=== PATIENT | male | born 1955 | race Caucasian/White ===

== ENCOUNTER 2018-06-28 17:20 | Inpatient (IN) | payer MEDICARE, OTHER ==
[2018-06-28 17:53] VITALS: BP 145/80
[2018-06-28] MEDS ORDERED: Maalox 30 mL Cup PO PRN (18:02)
[2018-06-28] MEDS ORDERED: Magnesium Hydroxide (MOM) 30 mL UDC PO PRN (18:02)
[2018-06-28 21:08] LABS: URINE SOURCE RANDOM
[2018-06-28 21:11] LABS: URINE BILIRUBIN NEGATIVE (NEGATIVE); URINE BLOOD NEGATIVE (NEGATIVE); URINE GLUCOSE (UA) NEGATIVE (NEGATIVE); URINE KETONE NEGATIVE (NEGATIVE); URINE LEUKOCYTE ESTERASE TRACE (NEGATIVE); URINE MICROSCOPIC INDICATED? YES; URINE NITRATE NEGATIVE (NEGATIVE); URINE PROTEIN NEGATIVE (NEGATIVE); URINE UROBILINOGEN 0.2 E.U./dL (0.2 - 1.0)
[2018-06-28 21:13] LABS: URINE CLARITY CLEAR (CLEAR); URINE COLOR YELLOW
[2018-06-28 21:16] LABS: URINE RBC 0-2 /hpf (0-5)
[2018-06-28 21:17] LABS: URINE BACTERIA OCCASIONAL /hpf (NONE SEEN); URINE EPITHELIAL CELLS OCCASIONAL /lpf (FEW)
[2018-06-29 06:45] LABS: % BASOPHILS 0.2 % (0.0-2.0); % EOSINOPHILS 1.8 % (0.0-5.0); % LYMPHOCYTES 18.2 % (20.0-50.0); % MONOCYTES 9.5 % (2.0-10.0); % NEUTROPHILS 70.3 % (40.0-80.0); EOSINOPHILE ABSOLUTE 0.2 Th/cmm (0.1-0.4); HEMATOCRIT 44.9 % (41.0-60); HEMOGLOBIN 15.1 gm/dL (12-16); LYMPHOCYTE ABSOLUTE 2.5 Th/cmm (1.5-3.0); MEAN CELL VOLUME 88.7 fl (80-99); MEAN CORPUSCULAR HEMOGLOBIN 29.7 pg (26.0-30.0); MEAN CORPUSCULAR HGB CONC 33.5 pg (28.0-36.0); MEAN PLATELET VOLUME 7.5 fl; MONOCYTE ABSOLUTE 1.3 Th/cmm (0.3-1.0); NEUTROPHILE ABSOLUTE 9.5 Th/cmm (1.8-8.0); PLATELET COUNT 321 Th/cmm (150-400); RED BLOOD COUNT 5.07 Mil/cmm (4.30-5.70); RED CELL DISTRIBUTION WIDTH 14.2 % (11.5-20.0); WHITE BLOOD COUNT 13.5 Th/cmm (4.8-10.8)
[2018-06-29 07:10] LABS: ALB/GLOB RATIO 1.6 (1.0-1.8); ALBUMIN 4.1 gm/dL (4.2-5.5); ALKALINE PHOSPHATASE 68 U/L (34-104); ANION GAP 12.5 (7.0-16.0); BILIRUBIN,TOTAL 1.3 mg/dL (0.3-1.0); BUN - UREA NITROGEN 6 mg/dL (7-25); CALCIUM SERUM 9.3 mg/dL (8.6-10.3); CARBON DIOXIDE 24.7 mEq/L (21.0-31.0); CHLORIDE 105 mEq/L (98-107); CREATININE - SERUM 0.7 mg/dL (0.7-1.3); GFR AFRICAN-AMERICAN > 60.0 ml/min (>90); GFR NON AFRICAN-AMERICAN > 60.0 ml/min; GLUCOSE 136 mg/dL (70-105); POTASSIUM SERUM 4.2 mEq/L (3.5-5.1); SGOT 13 U/L (13-39); SGPT/ALT 10 U/L (7-52); SODIUM SERUM 138 mEq/L (136-145); TOTAL PROTEIN,SERUM 6.6 gm/dL (6.0-8.3)
[2018-06-29 07:11] LABS: CHOLESTEROL 160 mg/dL (<200); HDL -HIGH DENSITY LIPOPROTEIN 45 mg/dL (23-92); TRIGLYCERIDES 117 mg/dL (<150)
--- NOTE | 2018-06-29 09:09 | Diagnostic Imaging Report ---
Portable chest x-ray History: Shortness of breath Allowing for portable technique the heart size is normal. No focal pulmonary parenchymal processes. No hilar or mediastinal abnormalities. Impression: No acute abnormalities.
[2018-06-29] MEDS: Multivitamin Tab PO SCH (09:17)
--- NOTE | 2018-06-29 20:59 | Psychiatric Evaluation ---
DATE OF SERVICE: 06/28/2018 IDENTIFYING DATA: The patient is a 62-year-old male admitted on 5150 from [facility] in [place] because of the grave disability. CHIEF COMPLAINT: "I don't know, I need to be in here." HISTORY OF PRESENT ILLNESS: This is the first psychiatric hospitalization to [facility] for this patient who is reported to have been not making any sense and is extremely paranoid and has been going on a tangent. The patient during the interview has been noted to be very disabled and has been also reported to have been acting very bizarre. The patient is reported to have mentioned to the bond underwriter at the [facility] that someone took his brain. The patient has started to shout at the bond underwriter for every question unable to focus and give simple answers. When I am asking him, he says that he does not have anyone and he needs to be in here and does okay with him. The patient at this time is not making much sense. Continues to be paranoid. The patient also reported to have tried to take his life. PAST PSYCHIATRIC HISTORY: Details are not known. MEDICAL HISTORY AND PHYSICAL EXAMINATION: Requested by Dr. Jay. SUBSTANCE ABUSE HISTORY: None. PHYSICAL OR SEXUAL ABUSE HISTORY: None. LEGAL PROBLEMS: None at this time. STRENGTH AND ASSETS: The patient is motivated. MENTAL STATUS EXAMINATION: The patient is a 62-year-old, looking his stated age, superficially cooperative. Eye contact is poor. Mood is noted to be irritable. Affect is constricted. The patient is getting easily irritable. The patient is alert and aware that he is in the hospital. Insight and judgment overall noted to be very poor. DIAGNOSTIC IMPRESSION: AXIS I: Schizophrenia, chronic paranoid type. B: Rule out schizoaffective disorder. AXIS II: None. AXIS III: As per Dr. Jay. IMMEDIATE TREATMENT PLAN: The patient is going to be observed on inpatient unit, provided with supportive psychotherapy. The patient is going to be closely monitored and encouraged to participate in the groups and verbalize the concerns rather than to act out. Once stabilized, the patient is going to be discharged to [facility] to be followed up on an outpatient basis. ESTIMATED LENGTH OF STAY: 5-7 days. DISCHARGE CRITERIA: When he no longer is a threat to self or others and be able to cope up with the stress. [facility]# [id number]
[2018-06-30] MEDS: Escitalopram Oxalate 5 mg Tab PO SCH (08:58)
[2018-06-30] MEDS: Multivitamin Tab PO SCH (08:58)
--- NOTE | 2018-06-30 09:12 | History & Physical ---
ADMIT DATE: 06/28/2018 REASON FOR ADMISSION: Psychiatric disorder. HISTORY OF PRESENT ILLNESS: This is a 62-year-old male with underlying history of mental health disorder who was admitted to [facility] for underlying psychiatric illness by Dr. Amin. Dr. Amin requested medical H and P on this patient. During my evaluation, the patient states he is doing fine, has a right lower leg area open wound for which he has been treated for with antibiotics. Denies any fever, chills, nausea, vomiting. No chest pain, trouble breathing. No headache or other complaints. PAST MEDICAL HISTORY: Denies. PAST SURGICAL HISTORY: Denies. FAMILY HISTORY: Denies. SOCIAL HISTORY: Chronic smoker. Denies any alcohol or street drug use. CURRENT MEDICATIONS: Per medication reconciliation. ALLERGIES: No drug allergies. REVIEW OF SYSTEMS: As per HPI, 12-point system reviewed, appears negative. PHYSICAL EXAMINATION: VITAL SIGNS: Temperature 98.8, pulse 79, respirations 18-20, blood pressure ____ 98% on room air. Pain 0/10. GENERAL APPEARANCE: This patient does not seem in acute distress. HEART: S1, S2 normal ____ NEUROLOGIC: The patient awake, somewhat confused. Moves all extremities. Grossly nonfocal exam. SKIN: The right lower extremity open wound noted. Also, some scattered ____. ASSESSMENT AND PLAN: 1. Right lower leg infected wound, improving. 2. Nicotine dependence. 3. ____. Continue Keflex. Daily wound care will be given. Smoking cessation advised. Psych management per psychiatrist. ____. JOB# [id number]
--- NOTE | 2018-06-30 11:01 | Progress Notes ---
DATE: 06/30/2018 SUBJECTIVE: Staff was spoken to. The patient's mood is noted to be irritable. Affect is constricted. Insight and judgment at this time are noted to be still impaired. Impulse control is noted to be limited. The patient has been placed on 5 mg of the citalopram and 12.5 mg of the Seroquel and has been able to tolerate. No side effects to the medications are noted. The patient is getting easily irritable and angry at this time and has been very paranoid. ASSESSMENT: The patient is still impulsive. PLAN: To continue the patient with the supportive therapy. I encouraged the patient to verbalize the concerns. The patient is still insisting on ending his life and the patient is not able to contract for safety. Plan to closely monitor the patient with the above medications and follow. JOB# [id number]
[2018-07-01] MEDS: Multivitamin Tab PO SCH (08:16)
[2018-07-01] MEDS: Escitalopram Oxalate 5 mg Tab PO SCH (08:17)
--- NOTE | 2018-07-01 21:51 | Progress Notes ---
DATE: 07/01/2018 SUBJECTIVE: Staff was spoken to. The patient is interviewed. Mood is noted to be depressed. Affect is constricted. Coping skills are noted to be still poor. The patient has been having difficult time to cope with the stress. The patient is still depressed and is insisting on ____ his leg. The patient is stating that he is sick and tired and does not want to be living anymore. ASSESSMENT: The patient is still depressed and suicidal. PLAN: To continue the patient with the supportive therapy, encouraged the patient to verbalize the concerns. Lexapro is going to be changed to 10 mg and the patient is going to be followed up with supportive therapy. JOB# [id number]
[2018-07-02] MEDS: Multivitamin Tab PO SCH (08:06)
--- NOTE | 2018-07-02 10:01 | Consultation ---
DATE OF CONSULTATION: 07/01/2018 REFERRING PHYSICIAN: Jani Amin M.D. TYPE OF CONSULTATION: Psychology. HISTORY OF PRESENT ILLNESS: The patient is a 62-year-old male. The patient is being admitted on a 5150 from [facility] due to grave disability. The following is by record review as well as by the patient's self report. According to record review, the patient was reported to have verbalized to the staff at [facility] that someone took his brain. It is reported that the patient had become extremely paranoid and was not making much sense as well as the patient was exhibiting bizarre behavior. The patient was then transferred here for evaluation and treatment for stabilization. Upon interview, the patient is loud and difficult to cognitively redirect. The patient is going off on a tangent and is not making much sense. The patient reports that he has had a previous suicide attempt. This requires further evaluation. The patient denied having suicidal ideation at the time of this clinical interview. PAST MEDICAL HISTORY: Please see history and physical by Dr. Jay. PAST PSYCHIATRIC HISTORY: Information is unavailable at the time of this clinical interview. Details are unknown. SUBSTANCE ABUSE HISTORY: The patient denied any history. PSYCHOSOCIAL HISTORY: The patient did not answer questions about occupational or educational history or holiness affiliation. The patient did not answer questions about history or physical or sexual abuse or current legal problems. The patient states that he does not have any family members or any friends or any support. MENTAL STATUS EXAMINATION: The patient appears to be his stated age. The patient's attitude is uncooperative. Speech is pressured and loud and rambling. Eye contact is poor. Mood is irritable. Affect is constricted. Thought process shows to be markedly tangential. The patient is answering clinical questions irrelevantly. The patient denied any auditory or visual hallucinations. The patient did admit that he had a previous suicide attempt. The patient denied current suicidal ideation, plan, or intention. The patient's behavior has been unpredictable and difficult to redirect on the unit. Impulse control is inadequate. Concentration is poor. The patient's sensorium is alert and oriented to self and place only. The patient did not participate in the memory assessment. Immediate memory appears to be impaired. Short-term and long-term memory need to be further evaluated. The patient did not participate in the interpretation of proverbs. Insight is impaired. Judgment is impaired. DIAGNOSTIC IMPRESSION: AXIS I: Schizophrenia, chronic paranoid type. AXIS II: Deferred. AXIS III: Per Dr. Jay. TREATMENT PLAN: The patient has been seen by Dr. Amin for psychiatric evaluation and for the management of the patient's psychotropic medications. We will provide supportive psychotherapy to include reality orientation, differentiation, and integration. We will provide daily opportunities for the patient to verbally contract for safety, specifically no self-harm. We will continue to evaluate for and monitor suicidal ideation, plan or intention since the patient has a self admitted history of at least 1 suicide attempt. We will provide limit setting and de-escalation and encourage the patient to verbalize his concerns versus acting out. We will provide coping strategies for chronic long-term severe mental illness. We will encourage the patient to demonstrate emotional and self-regulation prior to discharge. We will continue to provide supportive psychotherapy to include coping mechanisms and motivational enhancement for the patient to become compliant and stay compliant with all aspects of his care and treatment. Thank you, Dr. Amin, for this consult and the opportunity to participate in this patient's care. JOB# [id number] ANTONI
--- NOTE | 2018-07-02 12:22 | Progress Notes ---
DATE: 07/02/2018 SUBJECTIVE: Staff was spoken to. The patient is interviewed. Mood is noted to be irritable. Affect is constricted. Insight and judgment are very much impaired. Impulse control is noted to be poor. Coping skills are noted to very poor. The patient is not able to contract for safety. No side effects to the medications are noted at this time. ASSESSMENT: The patient is still impulsive and is threatening to take his life and is not able to contract for safety. PLAN: To continue the patient with the supportive therapy and followup. JOB# [id number]
[2018-07-03] MEDS: Multivitamin Tab PO SCH (08:23)
--- NOTE | 2018-07-03 12:08 | Progress Notes ---
DATE: 07/03/2018 SUBJECTIVE: Staff was spoken to. The patient is interviewed. Mood is noted to be irritable. Affect is constricted. Coping skills are noted to be poor at this time. The patient is still isolative and withdrawn and getting easily irritable and ____ frustrated. The patient, however, has been able to tolerate the medication. The patient is still suicidal. No homicidal ideation is noted. ASSESSMENT: The patient is still impulsive and depressed. PLAN: To continue the patient with the current medications and followup. JOB# [id number]
[2018-07-04] MEDS: Multivitamin Tab PO SCH (08:17)
--- NOTE | 2018-07-04 16:00 | Progress Notes ---
DATE: 07/04/2018 PSYCHIATRIC PROGRESS NOTE PROGRESS ON THE UNIT: Staff was spoken to. The patient is interviewed. Mood is noted to be irritable. Affect is constricted. Insight and judgment at this time are noted to be still impaired. The patient is very testy and tends to be very demanding. The patient has no coping skills. The patient is still insisting on hurting himself. The patient is not willing to participate in the groups and verbalize the concerns. ASSESSMENT: The patient is still impulsive. PLAN: To continue the patient with supportive therapy, increase the dose on Seroquel to 50 mg, and follow the patient with supportive therapy. JOB# [id number]
--- NOTE | 2018-07-04 21:48 | General Progress Note ---
Subjective - Review of Systems Service Date: 07/05/18 Subjective: Patient doing fine no new concern reported Objective - Results Result Diagrams: 06/29/18 06:05 06/29/18 06:05 Recent Labs: Laboratory Last Values WBC 13.5 Th/cmm (4.8-10.8) H 06/29/18 06:05 RBC 5.07 Mil/cmm (4.30-5.70) 06/29/18 06:05 Hgb 15.1 gm/dL (12-16) 06/29/18 06:05 Hct 44.9 % (41.0-60) 06/29/18 06:05 MCV 88.7 fl (80-99) 06/29/18 06:05 MCH 29.7 pg (26.0-30.0) 06/29/18 06:05 MCHC Differential 33.5 pg (28.0-36.0) 06/29/18 06:05 RDW 14.2 % (11.5-20.0) 06/29/18 06:05 Plt Count 321 Th/cmm (150-400) 06/29/18 06:05 MPV 7.5 fl 06/29/18 06:05 Neutrophils % 70.3 % (40.0-80.0) 06/29/18 06:05 Lymphocytes % 18.2 % (20.0-50.0) L 06/29/18 06:05 Monocytes % 9.5 % (2.0-10.0) 06/29/18 06:05 Eosinophils % 1.8 % (0.0-5.0) 06/29/18 06:05 Basophils % 0.2 % (0.0-2.0) 06/29/18 06:05 Sodium 138 mEq/L (136-145) 06/29/18 06:05 Potassium 4.2 mEq/L (3.5-5.1) 06/29/18 06:05 Chloride 105 mEq/L (98-107) 06/29/18 06:05 Carbon Dioxide 24.7 mEq/L (21.0-31.0) 06/29/18 06:05 Anion Gap 12.5 (7.0-16.0) 06/29/18 06:05 BUN 6 mg/dL (7-25) L 06/29/18 06:05 Creatinine 0.7 mg/dL (0.7-1.3) 06/29/18 06:05 Est GFR ( Amer) > 60.0 ml/min (>90) 06/29/18 06:05 Est GFR (Non-Af Amer) > 60.0 ml/min 06/29/18 06:05 BUN/Creatinine Ratio 8.6 06/29/18 06:05 Glucose 136 mg/dL (70-105) H 06/29/18 06:05 POC Glucose 206 MG/DL (70 - 105) H 06/28/18 20:02 Calcium 9.3 mg/dL (8.6-10.3) 06/29/18 06:05 Total Bilirubin 1.3 mg/dL (0.3-1.0) H 06/29/18 06:05 AST 13 U/L (13-39) 06/29/18 06:05 ALT 10 U/L (7-52) 06/29/18 06:05 Alkaline Phosphatase 68 U/L (34-104) 06/29/18 06:05 Total Protein 6.6 gm/dL (6.0-8.3) 06/29/18 06:05 Albumin 4.1 gm/dL (4.2-5.5) L 06/29/18 06:05 Globulin 2.5 gm/dL 06/29/18 06:05 Albumin/Globulin Ratio 1.6 (1.0-1.8) 06/29/18 06:05 Triglycerides 117 mg/dL (<150) 06/29/18 06:05 Cholesterol 160 mg/dL (<200) 06/29/18 06:05 LDL Cholesterol Direct 94 mg/dL (75-193) 06/29/18 06:05 HDL Cholesterol 45 mg/dL (23-92) 06/29/18 06:05 Urine Source RANDOM 06/28/18 20:00 Urine Color YELLOW 06/28/18 20:00 Urine Clarity CLEAR (CLEAR) 06/28/18 20:00 Urine pH 7.0 (4.6 - 8.0) 06/28/18 20:00 Ur Specific [place] 1.015 (1.005-1.030) 06/28/18 20:00 Urine Protein NEGATIVE mg/dL (NEGATIVE) 06/28/18 20:00 Urine Glucose (UA) NEGATIVE mg/dL (NEGATIVE) 06/28/18 20:00 Urine Ketones NEGATIVE mg/dL (NEGATIVE) 06/28/18 20:00 Urine Blood NEGATIVE (NEGATIVE) 06/28/18 20:00 Urine Nitrate NEGATIVE (NEGATIVE) 06/28/18 20:00 Urine Bilirubin NEGATIVE (NEGATIVE) 06/28/18 20:00 Urine Urobilinogen 0.2 E.U./dL (0.2 - 1.0) 06/28/18 20:00 Ur Leukocyte Esterase TRACE (NEGATIVE) H 06/28/18 20:00 Urine RBC 0-2 /hpf (0-5) H 06/28/18 20:00 Urine WBC 2-5 /hpf (0-5) 06/28/18 20:00 Ur Epithelial Cells OCCASIONAL /lpf (FEW) 06/28/18 20:00 Urine Bacteria OCCASIONAL /hpf (NONE SEEN) 06/28/18 20:00 - Physical Exam Vitals and I&O: Vital Signs Temp 97.4 F 07/04/18 14:00 Pulse 67 07/04/18 14:00 Resp 18 07/04/18 14:00 BP 108/60 07/04/18 14:00 Pulse Ox 97 07/04/18 14:00 Intake & Output 07/04/18 07/04/18 07/05/18 06:59 18:59 06:59 Intake Total 1350 Balance 1350 Intake: Oral 1350 Other: # Bowel Movements 1 Active Medications: Current Medications Acetaminophen (Tylenol) 650 mg PO Q4HR PRN PRN Reason: Mild Pain / Temp above 100 Stop: 08/27/18 18:01 Al Hydrox/Mg Hydrox/Simethicone (Maalox) 30 ml PO Q4HR PRN PRN Reason: GI DISTRESS Stop: 08/27/18 18:01 Escitalopram Oxalate (Lexapro) 10 mg PO DAILY ELIDA; Protocol Stop: 08/31/18 08:59 Last Admin: 07/04/18 08:17 Dose: 10 mg Lorazepam (Ativan) 0.5 mg PO Q4HR PRN; Protocol PRN Reason: Agitation Stop: 07/28/18 18:01 Last Admin: 07/04/18 08:17 Dose: 0.5 mg Magnesium Hydroxide (Milk Of Magnesia) 30 ml PO HS PRN PRN Reason: Constipation Multivitamins/Vitamin C (Theragran) 1 tab PO DAILY ELIDA Stop: 08/28/18 08:59 Last Admin: 07/04/18 08:17 Dose: 1 tab Quetiapine Fumarate (Seroquel) 50 mg PO HS ELIDA; Protocol Stop: 09/02/18 20:59 Last Admin: 07/04/18 21:15 Dose: 50 mg Zolpidem Tartrate (Ambien) 5 mg PO HS PRN PRN Reason: Insomnia Stop: 08/27/18 18:01 Last Admin: 07/04/18 21:15 Dose: 5 mg Cardiovascular: Regular rate Lungs: Clear to auscultation Extremities: Other (Right leg wound healing) Assessment/Plan - Assessment Assessment: Right leg wound healing Multiple superfical wound healing Nicotine dependancy - Plan Plan: Continue keflex Continue wound care Smoking cessation advised Psych management per psychiatrist Plan of care discussed with nursing staff Nutritional Asmnt/Malnutr-PDOC - Dietary Evaluation Malnutrition Findings (Please click <Entered> for more info): Nutritional Asmnt/Malnutrition Start: 06/29/18 12: 44 Text: Status: Complete Freq: Protocol: Document 06/29/18 12:50 KRYSTA (Rec: 06/29/18 13:00 [email or web address]) Nutritional Asmnt/Malnutrition Patient General Information Nutritional Screening High Risk Consult Diagnosis psychosis Pertinent Medical Hx/Surgical Hx no H&P as of this time. Per nurse note schizophrenia; attempted to strangle self with a cord Subjective Information Received nutrition consult d/t glucose 204 upon admit. Pt was seen eating in dining room . Food preferences provided. Pt stated he likes everything. Per EMR, PO intake 100% of snack last night. Glucose 136 today, pt on regular diet, no need for diabetic education at this time. Current Diet Order/ Nutrition Support regular Pertinent Medications theragran, seroquel Pertinent Labs 06/29 BUN 6, GLUC 136, Albumin 4.1 06/28 POC 206 Nutritional Hx/Data Height 1.83 m Height (Calculated Centimeters) 182.9 Current Weight (lbs) 92.986 kg Weight (Calculated Kilograms) 93.0 Weight (Calculated Grams) 56797.4 [place] Body Weight 178 Body Mass Index (BMI) 27.8 Weight Status Overweight GI Symptoms GI Symptoms None Last BM none noted Difficult in: None Food Allergies No Skin Integrity/Comment: laceration to left parietal, abrasions, lacerations to both arms and legs Current %PO Good (75-100%) Estimated Nutritional Goals BEE in Kcals: Using Current wt Calories/Kcals/Kg 23-27 Kcals Calculated 6699-7887 Protein: Using Current wt Protein g/k.8 Protein Calculated 75 Fluid: ml 9277-0717 (1ml/kcal) Nutritional Problem No current Nutrition Prob Problem N/A Malnutrition Alert Is there a minimum of two criteria No selected? Query Text:Check all the applicable criteria. A minimum of two criteria are recommended for diagnosis of either severe or non-severe malnutrition. Malnutrition Related to Morbid Obesity Malnutrition related to morbid obesity No Intervention/Recommendation Comments 1. Continue with regular diet as ordered. Consider CCHO diet if glucose continue high. 2. Monitor PO intake, wt, labs and skin integrity 3. F/U as moderate risk in 3-5 days, 07/02-07/04 Expected Outcomes/Goals Expected Outcomes/Goals 1. PO intake to meet at least 75% of nutritional needs. 2. Wt stability, skin to remain intact, labs to approach WNL. Reviewed by Sunita Conklin RD
[2018-07-05] MEDS: Multivitamin Tab PO SCH (08:52)
--- NOTE | 2018-07-05 20:31 | Progress Notes ---
DATE: 07/05/2018 PSYCHIATRIC PROGRESS NOTE SUBJECTIVE: Staff was spoken to. The patient is interviewed. Mood is noted to be irritable. Affect is constricted. The patient is pacing most of the time on the unit. Insight and judgment are noted to be still impaired. Impulse control is noted to be limited. The patient has been very disheveled. The patient is currently on 50 mg of the Seroquel at night time. Plan to gradually increase it to 100 mg and follow the patient with the supportive therapy. The patient is also on the Lexapro 10 mg in the morning. ASSESSMENT: The patient is still impulsive and paranoid. PLAN: To continue the patient with the current medications and follow the patient up. JOB# [id number]
[2018-07-06] MEDS: Multivitamin Tab PO SCH (09:40)
--- NOTE | 2018-07-07 02:12 | Progress Notes ---
DATE: 07/06/2018 PSYCHIATRIC PROGRESS NOTE SUBJECTIVE: Staff was spoken to. The patient is interviewed. Mood is noted to be less irritable. Today, the patient has paranoia, but denies any command hallucinations. Sleep and appetite are noted to be improving. Personal hygiene continues to be very poor. The patient has been placed on 100 mg of the Seroquel and has been able to tolerate the medication. ASSESSMENT: The patient is still psychotic. PLAN: To continue the patient with the supportive therapy. I encouraged the patient to verbalize the concerns rather than to act out. JOB# [id number]
[2018-07-07] MEDS: Multivitamin Tab PO SCH (08:33)
--- NOTE | 2018-07-07 12:51 | Progress Notes ---
DATE: 07/07/2018 SUBJECTIVE: Staff was spoken to. The patient is interviewed. Mood is noted to be anxious. Affect is appropriate. The patient's insight and judgment are noted to be still impaired. Impulse control is noted to be limited. The patient is currently on 100 mg of the Seroquel and has been able to tolerate the medication. The patient's personal hygiene continues to be poor. ASSESSMENT: The patient's psychosis is resolving. PLAN: To continue the patient with the supportive therapy and followup. [facility]# [id number]
[2018-07-08] MEDS: Multivitamin Tab PO SCH (08:05)
--- NOTE | 2018-07-09 00:09 | Progress Notes ---
DATE: 07/08/2018 PSYCHIATRIC PROGRESS NOTE SUBJECTIVE: Staff was spoken to. The patient is interviewed. Mood is noted to be irritable. Affect is constricted. The patient's coping skills at this time are noted to be still poor. Insight and judgment are noted to be impaired. The patient has paranoid delusions, but denies any command hallucinations. No side effects to the medications are noted at this time. ASSESSMENT: The patient is still paranoid. PLAN: To continue the patient with the supportive therapy and followup. [facility]# [id number]
[2018-07-09] MEDS: Multivitamin Tab PO SCH (08:34)
--- NOTE | 2018-07-09 12:51 | Progress Notes ---
DATE: 07/09/2018 SUBJECTIVE: Staff was spoken to. The patient is interviewed. Mood is noted to be irritable. Affect is constricted. Insight and judgment at this time are noted to be still impaired. Impulse control is noted to be limited. The patient has paranoia, but denies any command hallucinations. No side effects to the medications are noted. ASSESSMENT: The patient's psychosis is resolving. PLAN: To continue the patient with the supportive therapy and followup. JOB# [id number]
[2018-07-10] MEDS: Multivitamin Tab PO SCH (09:17)
--- NOTE | 2018-07-12 09:45 | Discharge Summary ---
DATE OF DISCHARGE: 07/10/2018 IDENTIFYING DATA: The patient is a 62-year-old male admitted on 5150 from [facility] for being gravely disabled. CHIEF COMPLAINT: "I don't know, I need to be in here." DIAGNOSES AT THE TIME OF ADMISSION: AXIS I: Schizophrenia, chronic paranoid type; rule out schizoaffective disorder. AXIS II: None. AXIS III: As per Dr. Jay. HISTORY OF PRESENT ILLNESS: Please refer to the 06/29/2018 dictation done by me. HOSPITAL COURSE AND RESPONSE TO TREATMENT: The patient had the physical examination done by Dr. Luis Jay and is noted to be significant for right lower leg infected wound. The patient has been observed on inpatient unit, provided with supportive psychotherapy. The patient has been started on the escitalopram for his depression, which was gradually increased to 10 mg and Seroquel was gradually increased 100 mg at bedtime with this medication. The patient was observed and was noted to be doing fairly well and the patient was finally discharged for followup on outpatient basis. MENTAL STATUS EXAMINATION: At the time of discharge, the patient's mood is noted to be less irritable. Affect is appropriate. Not suicidal or homicidal. Insight and judgment are improving. Impulse control seems to be fair. Coping skills are also noted to be fair. The patient has been able to verbalize the concerns rather than to act out at the time of discharge. CONDITION: At the time of discharge noted to be stable. DIAGNOSES AT THE TIME OF DISCHARGE: AXIS I: Schizophrenia, chronic paranoid type. AXIS II: None. AXIS III: None. JOB# [id number]
== END 2018-07-10 13:50 | DRG 885 ==
LOC: GERO 17:20
PROVIDERS: ADMIT Psychiatry & Neurology Psychiatry; ATTEND Psychiatry & Neurology Psychiatry
DX: F20.0 Paranoid schizophrenia (principal); S81.801A Unspecified open wound, right lower leg, initial encounter; F17.210 Nicotine dependence, cigarettes, uncomplicated; X58.XXXA Exposure to other specified factors, initial encounter; Y93.89 Activity, other specified; Y92.89 Other specified places as the place of occurrence of the external cause; Y99.8 Other external cause status
CPT/HCPCS: 36415-UA; 71045-TC; 80053-TC; 80061-TC; 81001-TC; 82948-90; 83036-90; 85025-TC; 90899; 93005; G0410; Z7610